=== PATIENT | female | born 1970 | race Caucasian/White ===

== ENCOUNTER 2017-11-13 15:48 | Emergency (ER) | payer MEDICAID ==
[2017-11-13] MEDS: ONDANSETRON (ODT) 4 MG TAB ODT (16:34)
[2017-11-13] MEDS: NICARDipine HCL 30 MG CAPSULE PO (16:37)
[2017-11-13] MEDS: ACETAMINOPHEN 500 MG TAB PO (17:29)
== END 2017-11-13 17:48 | disposition home or self-care (01) ==
LOC: E/R 15:48
DX: I16.0 Hypertensive urgency (principal); R40.2252 Coma scale, best verbal response, oriented, at arrival to emergency department; R40.2142 Coma scale, eyes open, spontaneous, at arrival to emergency department; R40.2362 Coma scale, best motor response, obeys commands, at arrival to emergency department
CPT/HCPCS: 70450; 81025; 99284-25

== ENCOUNTER 2019-01-08 01:44 | Emergency (ER) | payer SELFPAY, MEDICAID ==
[2019-01-08] MEDS: ONDANSETRON (ODT) 4 MG TAB ODT (03:30)
[2019-01-08] MEDS: morphine 4 MG/ML VIAL IM (03:31)
[2019-01-08] MEDS: NICARDipine HCL 30 MG CAPSULE PO (06:01)
== END 2019-01-08 07:12 | disposition home or self-care (01) ==
LOC: FTE 07:12
DX: S82.441A Displaced spiral fracture of shaft of right fibula, initial encounter for closed fracture (principal); I10 Essential (primary) hypertension; S82.51XA Displaced fracture of medial malleolus of right tibia, initial encounter for closed fracture; W10.9XXA Fall (on) (from) unspecified stairs and steps, initial encounter; Y92.89 Other specified places as the place of occurrence of the external cause
CPT/HCPCS: 29505; 73590; 73610-RT; 73630; 96372; 99284-25